=== PATIENT | female | born 2000 | race American Indian/Alaskan Native ===

== ENCOUNTER 2021-11-01 10:31 | Emergency (ER) | payer MEDICAID ==
[2021-11-01 11:55] VITALS: BP 137/89
[2021-11-01 12:49] LABS: BUN/Creatinine Ratio 9; Blood Urea Nitrogen 8 mg/dL (7-17); Calcium 10.1 mg/dL (8.4-10.2); Hemolysis Index 2
[2021-11-01 12:56] LABS: Basophils # (Auto) 0.1 K/mm3 (0.0-0.1); Basophils % (Auto) 0.5 % (0.0-1.8); Eosinophils % (Auto) 0.1 % (0.0-4.3); Hematocrit 41.5 % (30.3-42.9); Hemoglobin 13.5 gm/dl (10.1-14.3); Lymphocytes # (Auto) 1.9 K/mm3 (1.2-5.4); Lymphocytes % (Auto) 16.8 % (13.4-35.0); Mean Corpuscular HGB Conc 33 % (30-34); Mean Corpuscular Volume 84 fl (79-97); Monocytes # (Auto) 0.5 K/mm3 (0.0-0.8); Monocytes % (Auto) 4.3 % (0.0-7.3); Platelet Count 298 K/mm3 (140-440); Red Blood Count 4.94 M/mm3 (3.65-5.03); Red Cell Distribution Width 13.9 % (13.2-15.2)
[2021-11-01] MEDS ORDERED: HYOSCYAMINE SUBL 0.125 MG TAB SL ONE (21:40)
[2021-11-01] MEDS ORDERED: ONDANSETRON 4 MG ODT TAB PO STA (21:40)
[2021-11-01 22:55] LABS: Color,Urine Yellow (Yellow)
[2021-11-01 22:57] LABS: Bacteria,Urine 1+ /HPF (Negative); Mucus,Urine 3+ /HPF
== END 2021-11-01 23:00 | disposition left against medical advice (07) ==
LOC: ED 10:31
DX: R11.10 Vomiting, unspecified (principal); Z53.21 Procedure and treatment not carried out due to patient leaving prior to being seen by health care provider
CPT/HCPCS: 36415; 80048; 81001; 83690; 84703; 85025; J3490; Q0162